=== PATIENT | female | born 1955 | race Caucasian/White ===

== ENCOUNTER 2018-03-08 13:51 | Outpatient (CLI) | payer BC ==
--- NOTE | 2018-03-08 15:55 | RAD ---
ESOPHOGRAM AIR CONTRAST: HISTORY: Dysphagia. FINDINGS: Air contrast and single column barium evaluation of the esophagus shows a normal anatomic appearance. A 12 mm barium tablet traversed the esophagus without holdup. No diverticulum or hiatal hernia. There was decrease in primary and secondary peristalsis with mild non propulsive tertiary-type contra ctions. IMPRESSION: 1. No evidence of esophageal stricture or mass. 2. Mild presbyesophagus. POS: [facility]
== END 2018-03-08 13:52 | disposition home or self-care (01) ==
LOC: RAD 13:51
PROVIDERS: ATTEND Internal Medicine
DX: R13.10 Dysphagia, unspecified (principal); R14.0 Abdominal distension (gaseous); K22.8 Other specified diseases of esophagus
CPT/HCPCS: 74220

== ENCOUNTER 2018-05-18 13:26 | Outpatient (CLI) | payer BC ==
--- NOTE | 2018-05-18 15:03 | RAD ---
EXAM: CERVICAL SPINE FOUR VIEWS: History: Neck pain radiating down to both shoulders for years. Cervical disc degeneration and cervical radicul opathy and neck pain. FINDINGS: Exam includes flexion and extension lateral views. Disc space narrowing and disc osteophytosis most marked at C5-6 and C6-7. No evidence for abnormal tr anslation between flexion and extension. No prevertebral soft tissue swelling. No evidence for acute fracture. IMPRESSION: Lumbar spondylosis most marked at C5-6 and C6-7. No abnormal translation between flexion and extensio n. POS: [facility]
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
== END 2018-05-18 13:27 | disposition home or self-care (01) ==
LOC: SCSMRI 13:26
PROVIDERS: ATTEND Surgery
DX: M47.22 Other spondylosis with radiculopathy, cervical region (principal); M50.30 Other cervical disc degeneration, unspecified cervical region; G95.0 Syringomyelia and syringobulbia
CPT/HCPCS: 72050; 72141

== ENCOUNTER 2018-07-13 14:08 | Outpatient (CLI) | payer BC ==
[~2018-07-13 14:08] MED LIST: Gadobenate Dimeglumine 529 MG/1 ML (20ML VIAL) ONE
--- NOTE | 2018-07-13 15:42 | CT ---
CT of the soft tissues of the neck INDICATION: History of calcified mass within the left neck COMPARISON: Cervical spinal radiographs dated 05/18/2018 and MR the cervical spine dated 05/10/2018. FINDINGS: No lymphadenopathy is evident. The aerodigestive tract is normal-appearing. The thyroid, submandibula r and parotid glands appear within normal limits. No definite soft tissue mass or calcified mass lesion is evident. There is moderate multilevel spondylosis of the cervical spine most pronounced at C5-6 and C6-7. There is no evidence of a cervical rib. Visualized lungs are clear. The visualized vasculature of the neck appear within normal limits. The visualized intracranial contents are normal appearing. IMPRESSION: No evidence of a calcified soft tissue mass identified.
--- NOTE | 2018-07-14 08:54 | MRI ---
MRI PELVIS WITH AND WITHOUT IV CONTRAST: INDICATION: History of neuralgia of the left pudendal nerve. TECHNIQUE: Multiplanar multisequence MR images were obtained of the pelvis. High-resolution T2 and po stcontrast series were obtained. 11 mL of MultiHance was utilized for the examination. FINDINGS: There is a 3.4 x 1 x 1 cm loculated cystic lesion involving the left sacrotuberous ligament. This cys tic abnormality runs just posterior to the left pudendal neurovascular bundle, best seen on image 23 of series 4 through image 26 of series 4. This cystic abnormality would have potential for possibl e impingement of the neurovascular bundle with positioning such as prolonged sitting. No overt muscular atrophy is evident involving the pelvic floor musculature or visualized pelvic girdle. There is scattered diverticula involving the colon. The visualized uterus, bladder, rectum and perirectal soft tissues appear within normal limits. No free fluid or pathologically enlarged lymph n odes are evident. No definite bone marrow signal abnormality is noted. IMPRESSION: 1. Loculated cystic abnormality residing within the left sacrotuberous ligament. The cystic abnormal ity does course just slightly posterior to the left pudendal neurovascular bundle, near the level of the sacrospinous ligament, and may potentially impinge upon the left pudendal neurovascular bundle . There is no overt signal abnormality or abnormal enhancement involving the visualized left pudendal nerve. 2. Colonic diverticulosis. Transcribed Date/Time: 07/14/2018 9:27 AM
== END 2018-07-13 14:09 | disposition home or self-care (01) ==
LOC: SCSCT 14:08
PROVIDERS: ATTEND Specialist
DX: G58.8 Other specified mononeuropathies (principal); Q76.5 Cervical rib; M53.3 Sacrococcygeal disorders, not elsewhere classified; K57.30 Diverticulosis of large intestine without perforation or abscess without bleeding
CPT/HCPCS: 70491; 72197; 82565; A9577

== ENCOUNTER 2018-09-06 08:33 | Day surgery (SDC) | payer BC ==
[2018-08-18 14:36] VITALS: BMI 21.5
[~2018-09-06 08:33] MED LIST changes: -Gadobenate Dimeglumine 529 MG/1 ML (20ML VIAL) ONE; +methylPREDNISolone Sod Succ/PF 125 MG/2 ML VIAL ONE
[2018-09-06] MEDS ORDERED: methylPREDNISolone Acetate 40 mg/ml Vial IM SCH (08:45)
[2018-09-06 08:48] LABS: Hemoglobin 13.7 g/dL (12.0-16.0); Mean Corpuscular HGB CONC 31.1 g/dL (32.0-36.0); Mean Corpuscular Hemoglobin 29.5 pg (27.0-31.0); Mean Corpuscular Volume 94.7 fL (78.0-98.0); Mean Platelet Volume 8.7 fL (7.4-10.4); Platelet Count 310 thou/uL (130-400); RBC Distribution Width 11.4 % (11.5-14.5); Red Blood Cell (RBC) Count 4.65 mill/uL (4.20-5.40); White Blood Cell (WBC) Count 5.5 thou/uL (4.8-10.8)
[2018-09-06 08:56] LABS: INR-International Normal Ratio 0.9; PTT 30.9 SEC (22.9-36.1); Prothrombin Time 11.7 SEC (12.0-14.7)
[2018-09-06 09:25] LABS: Band 1 % (5-11); Eosinophils 5 % (0-10); Lymphocytes 64 % (21-51); MDiff Complete? YES; Monocytes 4 % (0-10); Neutrophil 25 % (42-75); RBC Morphology Normal
[2018-09-06] MEDS ORDERED: Fentanyl 100 MCG/2 ML VIAL ONE (10:14)
[2018-09-06] MEDS ORDERED: Sodium Bicarbonate 2.5 MEQ/5 ML VIAL ONE (10:14)
[2018-09-06] MEDS ORDERED: Midazolam HCl 2 mg/2 ml Vial ONE (10:14)
--- NOTE | 2018-09-06 12:48 | CT ---
CT-guided left sacrotuberous ligament cyst aspiration and injection INDICATION: Loculated cystic abnormality within the left sacrotuberous ligament was identified on an MR the pelvis with and without contrast dated July 13, 2018 from [facility]. This cystic abnormality was seen just posterior to the left pudendal neurovascular bundle and may be related to t he patient's neuralgia of the left pudendal nerve. TECHNIQUE: Informed consent was obtained for a CT-guided aspiration and injection of the cystic abnor mality in the left sacrotuberous ligament. Preprocedure CT was obtained for guidance purposes. Site overlying the cystic abnormality in left sacrotuberous ligament was then prepped and draped in usual sterile fashion. Buffered 1% lidocaine was administered to the overlying subcutaneous tissues. Under CT guidance, an 18-gauge spinal needle was guided down to the cystic abnormality. Multiple atte mpts were made for aspiration. Proximal a 1.5 mL of a tenacious mucus-like fluid was then aspirated from the cyst. Following this 18-gauge needle was removed and a 5 [place] Yueh catheter was then guide d down to the cystic abnormality. Additional attempts were made to aspirate additional material that proved to be unsuccessful. Following confirmation that the Yueh catheter was completely within t he cystic abnormality, a solution containing 1 mL of Depomedrol (40 mg/mL) and 2 mL of 1% lidocaine was administered into the cystic abnormality. Following this an additional 1.5 mL of 1% lidocaine was utilized to flush the catheter prior to removal. The catheter was then removed and pressure was held at the biopsy site until hemostasis was obtained. The patient tolerated the aspiration and injec tion without difficulty. IMPRESSION: Successful CT-guided left sacral tuberous ligament cyst aspiration injection Transcribed Date/Time: 09/06/2018 1:02 PM
[2018-09-06 14:06] VITALS: BP 114/61; TEMP 98.3
== END 2018-09-06 11:50 | disposition home or self-care (01) ==
LOC: CT 08:33
PROVIDERS: ATTEND Specialist
PROC: 3E0233Z Introduction of Anti-inflammatory into Muscle, Percutaneous Approach (ICD-10-PCS; principal; 2018-09-06)
DX: G57.82 Other specified mononeuropathies of left lower limb (principal); M43.12 Spondylolisthesis, cervical region; M48.02 Spinal stenosis, cervical region; G57.72 Causalgia of left lower limb; Z79.899 Other long term (current) drug therapy
CPT/HCPCS: 36415; 77002; 77012; 85025; 85610; 85730; J1030; J2250; J2930; J3010

== ENCOUNTER 2018-12-07 13:32 | Outpatient (CLI) | payer BC ==
[2018-12-07 14:38] LABS: Hemoglobin 13.1 g/dL (12.0-16.0); Mean Corpuscular HGB CONC 33.8 g/dL (32.0-36.0); Mean Corpuscular Hemoglobin 31.2 pg (27.0-31.0); Mean Corpuscular Volume 92.3 fL (78.0-98.0); Platelet Count 239 thou/uL (130-400); RBC Distribution Width 11.9 % (11.5-14.5); Red Blood Cell (RBC) Count 4.21 mill/uL (4.20-5.40); White Blood Cell (WBC) Count 6.9 thou/uL (4.8-10.8)
[2018-12-07 14:43] LABS: INR-International Normal Ratio 0.9; PTT 29.2 SEC (22.9-36.1); Prothrombin Time 12.2 SEC (12.0-14.7)
[2018-12-07 14:59] LABS: Anion Gap 13 mmol/L (10-20); BUN (Urea Nitrogen) 20 mg/dL (9.8-20.1); Calc. Creatinine Clearance 0 mL/min (70-130); Calcium 9.7 mg/dL (7.8-10.44); Carbon Dioxide 26 mmol/L (23-31); Chloride 104 mmol/L (98-107); Estimated GFR-MDRD 75; Glucose 94 mg/dL (80-115); Potassium 4.8 mmol/L (3.5-5.1); Sodium 138 mmol/L (136-145)
== END 2018-12-07 13:33 | disposition home or self-care (01) ==
LOC: LABBT 13:32
PROVIDERS: ATTEND Surgery
DX: Z01.818 Encounter for other preprocedural examination (principal); M48.02 Spinal stenosis, cervical region; M54.12 Radiculopathy, cervical region
CPT/HCPCS: 80048; 85027; 85610; 85730; 93005; 93010

== ENCOUNTER 2018-12-14 06:10 | Day surgery (SDC) | payer BC ==
[2018-12-07 13:39] VITALS: BMI 23.9
[2018-12-14] MEDS ORDERED: Sodium Chloride 0.9% 10 ML ONE (06:30)
[2018-12-14] MEDS ORDERED: Thrombin 5000 UNITS/5 ML VIAL ONE (06:30)
[2018-12-14] MEDS ORDERED: Fentanyl 100 MCG/2 ML VIAL ONE ×3 (06:57→10:19)
[2018-12-14] MEDS ORDERED: Midazolam HCl 2 mg/2 ml Vial ONE (07:34)
[2018-12-14] MEDS ORDERED: Fleet Enema 133 ML BOT PR PRN (09:54)
[2018-12-14] MEDS ORDERED: Milk Of Magnesia 30 ML UDCUP PO PRN (09:54)
[2018-12-14] MEDS ORDERED: Acetaminophen 325 MG TAB PO PRN (09:54)
[2018-12-14] MEDS ORDERED: Ondansetron PF 4 MG/2 ML Vial IVP PRN (09:54)
[2018-12-14] MEDS ORDERED: Mag-Al 1200 mg/1200 mg/30 ML UDCUP PO PRN (09:54)
[2018-12-14] MEDS ORDERED: Bisacodyl 10 MG SUPP PR PRN (09:54)
[2018-12-14] MEDS ORDERED: Fluticasone Propionate Nasal Spray 16 gm Bottle NASAL PRN (09:58)
[2018-12-14] MEDS ORDERED: HYDROmorphone 2 MG/ML VIAL ONE (09:59)
[2018-12-14] MEDS ORDERED: Ondansetron HCl/PF 4 MG/2 ML Vial IVP PRN (10:28)
[2018-12-14] MEDS ORDERED: HYDROmorphone 2 MG/ML VIAL SLOW IVP PRN (10:28)
[2018-12-14] MEDS ORDERED: Promethazine HCl 25 MG/ML VIAL IM PRN (10:28)
[2018-12-14] MEDS ORDERED: Promethazine HCl 25 MG/ML VIAL SLOW IVP PRN (10:28)
[2018-12-14] MEDS ORDERED: Loratadine 10 MG TAB PO PRN (10:30)
[2018-12-14] MEDS: Morphine 2 MG/ML SYRINGE SLOW IVP PRN ×6 (11:41→23:23)
[2018-12-14] MEDS: Sodium Chloride 0.9% 1,000 ML IV SCH ×2 (11:42→23:29)
[2018-12-14] MEDS: HYDROcodone/Acetaminophen 7.5/325 mg Tablet PO PRN ×4 (11:42→23:22)
[2018-12-14] MEDS: tiZANidine HCl 4 MG TAB PO PRN ×2 (12:57→21:36)
[2018-12-14] MEDS: traMADol HCl 50 MG TAB PO PRN (14:06)
[2018-12-14] MEDS: CEFAZOLIN 2 GM in Premix Bag 1 BAG IVPB SCH ×2 (15:47→23:19)
[2018-12-14] MEDS: Acetaminophen/Codeine 30-300mg Tablet PO PRN ×2 (18:36→21:36)
[2018-12-14] MEDS: Montelukast Sodium 10 mg Tablet PO SCH (19:44)
[2018-12-14] MEDS ORDERED: BUPRENORPHINE HCL 300 MCG BC SCH (21:00)
[2018-12-15] MEDS: tiZANidine HCl 4 MG TAB PO PRN (06:15)
[2018-12-15] MEDS: HYDROcodone/Acetaminophen 7.5/325 mg Tablet PO PRN ×5 (06:15→23:02)
--- NOTE | 2018-12-15 06:42 | OP ---
DATE OF PROCEDURE: 12/14/2018 OR: 12. PENCILS WASHER: Gloria. PREPROCEDURE DIAGNOSIS: Neck and arm pain with C5 through C7 stenosis. POSTPROCEDURE DIAGNOSIS: Neck and arm pain with C5 through C7 stenosis. PROCEDURES PERFORMED: 1. Anterior C5-C6, C6-C7 diskectomies for decompression of spinal cord and nerve roots. 2. Placement of interbody spacer for arthrodesis, C5-C6, C6-C7 for arthrodesis packed with local bone autograft obtained from same incision allograft. 3. Anterior cervical plate and screw fixation, C5, C6, C7. 4. Use of operative microscope for microdissection. DESCRIPTION OF PROCEDURE: After informed consent was obtained from the patient, the patient was brought to the OR. Proper patient, pause, and identification were carried out. Transverse paulette was drawn on the right anterior neck region. This area was sterilely cleansed, prepared, and draped. Proper patient, pause, and identification were carried out. The wound was then opened with combination of sharp, monopolar, and blunt dissection, and we proceeded lateral to the tracheoesophageal bundle, medial to the right carotid sheath. We identified the prevertebral layer of deep cervical fascia, longus colli muscles, they were swept laterally and retraction was placed and distraction of C5-C6 occurred. The microscope was brought and a microdiskectomy at C5-C6 was performed with decompression of spinal cord and C6 nerve roots. Endplates were prepared and interbody spacer packed with graft was placed for initiation of arthrodesis. We then did the same thing at C6-C7 with diskectomy and decompression of spinal cord and nerve roots, placement of interbody spacer, packed with graft for initiation of arthrodesis. Microscope was removed. Anterior cervical plate and screw fixation at C5, C6, C7 then occurred. Copious irrigation occurred throughout as did maximizing hemostasis. The wound was then closed in anatomic layers over drain. The patient emerged from anesthesia. Job ID: [id number]
[2018-12-15] MEDS: traMADol HCl 50 MG TAB PO PRN ×2 (07:55→15:06)
[2018-12-15] MEDS: CEFAZOLIN 2 GM in Premix Bag 1 BAG IVPB SCH ×3 (07:55→23:02)
--- NOTE | 2018-12-15 09:36 | PRG ---
DATE OF SERVICE: 12/15/2018 Ms. Rees is postoperative day #1, having undergone C5-7 ACDF. The patient has had some significant posterior neck pain radiating into the shoulders. Her drain output so far has been 70 mL total. She states she has no arm pain and feels as though she has good strength in the arms. She has been ambulating. She is wearing a well-fitting [place] collar. At this time, the patient needs more time to heal and we will keep her overnight. She will likely meet criteria for discharge tomorrow as her drain output has been diminishing. She is pleased with her outcome, but needs to work on continued pain control. She is tolerating a full diet and we were asked that we do not advance her diet while admitted. Please call with any change in the patient's neurologic status. Otherwise, the patient is neurologically intact. Job ID: [id number]
[2018-12-15] MEDS: Cyclobenzaprine 10 MG TAB PO PRN ×2 (10:16→18:04)
[2018-12-15] MEDS: Acetaminophen/Codeine 30-300mg Tablet PO PRN ×2 (13:13→21:22)
[2018-12-15] MEDS: Morphine 2 MG/ML SYRINGE SLOW IVP PRN (13:14)
[2018-12-15] MEDS: Sodium Chloride 0.9% 1,000 ML IV SCH (15:36)
[2018-12-15] MEDS: Montelukast Sodium 10 mg Tablet PO SCH (20:03)
[2018-12-16] MEDS: Acetaminophen/Codeine 30-300mg Tablet PO PRN ×2 (00:14→09:13)
[2018-12-16] MEDS: Cyclobenzaprine 10 MG TAB PO PRN ×2 (01:59→11:14)
[2018-12-16] MEDS: Sodium Chloride 0.9% 1,000 ML IV SCH (02:37)
[2018-12-16] MEDS: HYDROcodone/Acetaminophen 7.5/325 mg Tablet PO PRN ×2 (06:15→11:14)
[2018-12-16 07:37] VITALS: BP 109/77; TEMP 98.7
[2018-12-16] MEDS: CEFAZOLIN 2 GM in Premix Bag 1 BAG IVPB SCH (09:13)
--- NOTE | 2018-12-19 07:47 | DIS ---
DATE OF ADMISSION: 12/14/2018 DATE OF DISCHARGE: 12/16/2018 The patient is a 62-year-old female, who underwent C5 through C7 ACDF on 12/14/2018. Following the surgery, she was transitioned to the Med/Surg floor, where her pain has been well-controlled with p.o. medications, she is tolerating a regular diet, and she is voiding appropriately. She did have KAVITHA drain placed intraoperatively and its output has trended down nicely. Only 1 mL out overnight. On exam this morning, the patient is sitting up, awake, alert, in no acute distress. She has free active range of motion of all extremities. No focal motor weakness. There is scant blood in the KAVITHA drain. Her incision clean, dry, and intact. We will plan to dismiss the patient to home. I have discussed home care precautions. The patient has been provided with scripts for [employer] by Dr. Saunders. Job ID: [id number]
== END 2018-12-16 11:47 | disposition home or self-care (01) ==
LOC: SDC 06:10 → SURG A 11:36 → SDC 12-16 11:47
PROVIDERS: ATTEND Surgery
PROC: 0RT30ZZ Resection of Cervical Vertebral Disc, Open Approach (ICD-10-PCS; principal; 2018-12-14)
PROC: 0RG20A0 Fusion of 2 or more Cervical Vertebral Joints with Interbody Fusion Device, Anterior Approach, Anterior Column, Open Approach (ICD-10-PCS; principal; 2018-12-14)
DX: M48.02 Spinal stenosis, cervical region (principal); M54.12 Radiculopathy, cervical region; Z79.2 Long term (current) use of antibiotics; Z79.899 Other long term (current) drug therapy
CPT/HCPCS: 76000; C1713; C1776; J0690; J1170; J2250; J2270; J3010; J3490

== ENCOUNTER 2019-02-26 13:51 | Outpatient (CLI) | payer BC ==
--- NOTE | 2019-02-26 14:26 | RAD ---
CERVICAL SPINE 3 VIEWS: HISTORY: Pain. Cervical fusion. COMPARISON: None. FINDINGS: There is mild prevertebral soft tissue swelling from C5 through C7. There is an anterior fusion plate with transvertebral body screw at C5, C6 and C7. There does appear to be perihardware lucency at the C5 and possibly C7 levels. Disc prosthesis at C5-C6 and C6-C7. Grade 1 anterolisthesis of C2 upon C3 and C3 upon C4. On the open-mouth projection, appropriate alignment of the lateral masses of C1 and C2. Intact odonto id process. In the AP projection, right facet hypertrophy is noted at C3-C4. IMPRESSION: Cervical fusion from C5 through C7. There does appear to be perihardware lucency involving the screws at C5 and C7. Additionally, there does appear to be mild prevertebral soft tissue swelling. Correlate for postoperative changes versus infection. Results of study conveyed to Dr. Saunders via [employer] 02/26/2019 2:25 PM. Code CR Transcribed Date/Time: 02/26/2019 2:28 PM
== END 2019-02-26 13:52 | disposition home or self-care (01) ==
LOC: TBSIIMAG 13:51
PROVIDERS: ATTEND Surgery
DX: M54.2 Cervicalgia (principal); R93.7 Abnormal findings on diagnostic imaging of other parts of musculoskeletal system; M79.89 Other specified soft tissue disorders; Z98.1 Arthrodesis status
CPT/HCPCS: 72040

== ENCOUNTER 2022-11-09 13:54 | Outpatient (CLI) | payer BC | END 2022-11-09 13:55 | disposition home or self-care (01) | LOC: SCSMRI 13:54 | PROVIDERS: ATTEND Nurse Practitioner Family | DX: M47.26 Other spondylosis with radiculopathy, lumbar region (principal); M51.16 Intervertebral disc disorders with radiculopathy, lumbar region; M48.061 Spinal stenosis, lumbar region without neurogenic claudication; M51.37 Other intervertebral disc degeneration, lumbosacral region; M47.817 Spondylosis without myelopathy or radiculopathy, lumbosacral region; M48.07 Spinal stenosis, lumbosacral region; M24.28 Disorder of ligament, vertebrae | CPT/HCPCS: 72148 ==

== ENCOUNTER 2023-12-13 14:51 | Outpatient (CLI) | payer BC | END 2023-12-13 14:52 | disposition home or self-care (01) | LOC: SCSMRI 14:51 | PROVIDERS: ATTEND Specialist | DX: G58.8 Other specified mononeuropathies (principal) | CPT/HCPCS: 72195 ==